=== PATIENT | male | born 1955 | race Caucasian/White ===

== ENCOUNTER 2020-05-23 08:17 | Outpatient (CLI) | payer MEDICARE, MEDICAID, SELFPAY ==
[2020-05-23 14:26] LABS: HCT 45.6 % (40.0-50.0); HGB 14.9 g/dL (13.5-17.5); MCH 29.4 pg (27.0-33.0); MCHC 32.7 % (32.0-36.0); MCV 89.9 fL (80-95); MPV 11.4 fL (8.0-11.0); Platelet Count 200 10^3/uL (130-400); RBC 5.07 10^6/uL (4.36-5.78); RDW 12.1 % (11.8-14.1); RDW-SD 40.1 fL; WBC 5.55 10^3/uL (4.4-10.8)
[2020-05-23 15:45] LABS: ALT 41 U/L (16-63); AST 27 U/L (15-37); Albumin 4.1 g/dL (3.4-5.0); Alkaline Phosphatase 81 U/L (46-116); BUN 22 mg/dL (7-18); Bilirubin, Total 0.6 mg/dL (0.2-1.0); CREATININE 0.9 mg/dL (0.70-1.30); Calcium 9.3 mg/dL (8.5-10.1); Calculated LDL 146 mg/dL (<100); Chloride 103 mmol/L (98-107); Cholesterol 228 mg/dL (<200); Glucose 101 mg/dL (74-106); HDL Cholesterol 62 mg/dL (40-60); Potassium 4.5 mmol/L (3.5-5.1); Sodium 142 mmol/L (136-145); TSH (W/Ref FT4) 2.98 uIU/mL (0.36-3.74); Total Protein 7.1 g/dL (6.4-8.2); Triglyceride 100 mg/dL (<150)
== END 2020-05-23 08:18 | disposition home or self-care (01) ==
LOC: LBO 08:18
PROVIDERS: PCP Student in an Organized Health Care Education/Training Program; Visit Provider Student in an Organized Health Care Education/Training Program
DX: R53.83 Other fatigue (principal); F32.9 Major depressive disorder, single episode, unspecified; N52.9 Male erectile dysfunction, unspecified; H81.09 Meniere's disease, unspecified ear; E86.0 Dehydration
CPT/HCPCS: 36415; 80053; 80061; 85027; 84443

== ENCOUNTER 2020-07-29 15:06 | Emergency (ER) | payer MEDICARE, MEDICAID, SELFPAY ==
[2020-07-29 15:12] VITALS: BP 121/88; PULSE 67; RESP 18; TEMP 36.6; O2SAT 97
--- NOTE | 2020-07-29 16:00 | DI.RAD_ITS ---
Exam(s) XR KNEE LT 3V AP,LAT,DONOVAN EXAM: XR KNEE LT 3V AP,LAT,DONOVAN CLINICAL HISTORY: Left knee swelling, stiffness, R/O effusion. TECHNIQUE: 2D digital imaging was performed. COMPARISON: No exams were available for comparison FINDINGS: No evidence of fracture but there does appear to be a joint effusion. There are mild degenerative ch anges in the medial compartment. On the frontal view there is abnormal density in the soft tissues o ff the medial aspect of the joint. Correlation with any clinical signs of medial collateral ligament tear recommended. IMPRESSION: As above. Orthopedic follow-up recommended. DATA REPOSITORY: RADIATION DOSE DELIVERED:
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
--- NOTE | 2020-07-29 17:52 | DI.VRAD_ITS ---
PROCEDURE INFORMATION: Exam: XR Left Knee Exam date and time: 07/29/2020 4:09 PM Age: 65 years old Clinical indication: Pain; Knee; Left TECHNIQUE: Imaging protocol: XR Left knee. Views: 3 views. COMPARISON: No relevant prior studies available. FINDINGS: Bones/joints: Normal anatomic alignment. There is no evidence of acutely displaced fractures. There is no evidence of joint dislocation. No aggressive osseous lesions. A large suprapatellar joint effusion is present. Soft tissues: There is no significant soft tissue swelling. IMPRESSION: 1. Large suprapatellar effusion. 2. Negative for acute skeletal pathology. Dictated and Authenticated by: Sumit Chang MD. Ordering:HUGH Plascencia MD
== END 2020-07-29 18:20 | disposition home or self-care (01) ==
PROVIDERS: Emergency Provider Registered Nurse Emergency; PCP Student in an Organized Health Care Education/Training Program
DX: M25.462 Effusion, left knee (principal)
CPT/HCPCS: 29105; 73562; 99283

== ENCOUNTER 2020-08-13 11:26 | Outpatient (CLI) | payer MEDICARE, MEDICAID, SELFPAY ==
--- NOTE | 2020-08-13 11:00 | DI.RAD_ITS ---
Exam(s) XR KNEE LT 4V AP,LAT,DONOVAN,PAT EXAM: XR KNEE LT 4V AP,LAT,DONOVAN,PAT CLINICAL HISTORY: pain. TECHNIQUE: 2D digital imaging was performed. COMPARISON: CR,XR XR KNEE LT 3V AP,LAT,DONOVAN from 07/29/2020 FINDINGS: Four views of the left knee reveal no evidence of fracture nor obvious joint effusion. No obvious de generative changes in the medial lateral compartments. Small spur is noted off the lateral aspect of the patella. Minimal narrowing of the retropatellar compartment mid level. No osseous lesions. Carl ne density is age-appropriate. IMPRESSION: DATA REPOSITORY: RADIATION DOSE DELIVERED:
== END 2020-08-13 11:27 | disposition home or self-care (01) ==
LOC: DIORS 11:26
PROVIDERS: PCP Student in an Organized Health Care Education/Training Program; Referring Provider Student in an Organized Health Care Education/Training Program; Visit Provider Student in an Organized Health Care Education/Training Program
DX: M22.2X2 Patellofemoral disorders, left knee (principal); M22.8X2 Other disorders of patella, left knee; M25.562 Pain in left knee
CPT/HCPCS: 99214; 73564

== ENCOUNTER 2023-11-05 03:01 | Outpatient (CLI) | payer MEDICARE, MEDICAID, SELFPAY ==
[2023-11-05 12:17] LABS: Calculated LDL 100 mg/dL (<100); Cholesterol 182 mg/dL (<200); HDL Cholesterol 63 mg/dL (40-60); Triglyceride 98 mg/dL (<150)
== END 2023-11-05 03:02 | disposition home or self-care (01) ==
LOC: LBO 03:01
PROVIDERS: PCP Student in an Organized Health Care Education/Training Program; Referring Provider Student in an Organized Health Care Education/Training Program; Visit Provider Student in an Organized Health Care Education/Training Program
DX: Z13.220 Encounter for screening for lipoid disorders (principal)
CPT/HCPCS: 36415; 80061

== ENCOUNTER 2024-08-09 13:58 | Emergency (ER) | payer MEDICARE, SELFPAY ==
[2024-08-09 14:03] VITALS: BP 129/82; PULSE 75; RESP 16; TEMP 36.6; O2SAT 98
[2024-08-09 14:07] VITALS: BP 129/82; PULSE 75; RESP 16; TEMP 36.6; O2SAT 98
--- NOTE | 2024-08-09 14:15 | DI.CT_ITS ---
Exam(s) CT ABDOMEN PELVIS W EXAM: CT ABDOMEN PELVIS W CLINICAL HISTORY: lower abdominal pain. TECHNIQUE: Imaging Protocol: Axial computed tomography images with coronal and sagittal reformatted images were created and reviewed CONTRAST MATERIAL: Intravenous: Omnipaque 350 Contrast volume:100 ml Oral: no COMPARISON: No exams were available for comparison FINDINGS: ABDOMEN and PELVIS: Lung Bases: No acute findings. Liver: Normal density. No suspicious mass. Gallbladder and biliary tract: There is a single small gallstone in the dependent portion of the gallbladder. No wall thickening or pericholecystic fluid. No biliary dilation. Pancreas: Normal density. No abnormal calcifications or inflammatory process. No evidence of mass. Spleen: Normal. Kidneys: Normal size, contour and axis. No radiodense stones. No obstructive uropathy. Simple cyst left kidney. No follow-up recommended. No suspicious masses seen. Adrenal glands: No masses seen. Vasculature: Abdominal aorta non-dilated. Soft tissues: Unremarkable. Bladder: No gross wall thickening. No calculi.No focal mass. Bowel: No obstruction. Diverticulosis, greatest of the sigmoid. Wall thickening and inflammation at the distal sigmoid colon consistent with diverticulitis. Appendix normal. Peritoneal cavity: No ascites. No focal collection. Inflammation surrounding the lower descending colon. No free air. Bones: Unremarkable for age. Reproductive organs: Unremarkable. Lymph nodes: No pathologically enlarged lymph nodes. IMPRESSION:: Diverticulitis at the lower descending colon. No perforation or abscess. Findings called to Dr. Mojica of the emergency department. RADIATION DOSE DELIVERED: 906.59mGy.cm Total DLP DATA REPOSITORY: All CT scans at this facility are submitted to the National Radiology Data Registry (NRDR) Dose Index Registry (DIR) with the [employer] (ACR). RADIATION OPTIMIZATION: All CT scans at this facility use at least one of these dose optimization techniques: automated exposure control; mA and/or kV adjustment per patient size (includes targeted exams where dose is matched to clinical indication); or iterative reconstruction.
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
[2024-08-09] MEDS: Normal Saline 1,000 ML 1000 ML IV (14:44)
[2024-08-09] MEDS: Ondansetron 4 MG/2 ML VIAL IVP (14:44)
[2024-08-09 14:49] LABS: Abs Immature Grans 0.05 10^3/uL (0.0-0.06); Basophils % 0.1 %; Eosinophils % 0.7 %; HCT 44.1 % (40.0-50.0); HGB 14.5 g/dL (13.5-17.5); Immature Grans % 0.4 %; Lymphocytes % 15.2 %; MCH 29.1 pg (27.0-33.0); MCHC 32.9 % (32.0-36.0); MCV 88 fL (80-95); MPV 11.1 fL (8.0-11.0); Monocytes % 11.8 %; Neutrophils % 71.8 %; Platelet Count 226 10^3/uL (130-400); RBC 4.99 10^6/uL (4.36-5.78); RDW 12.8 % (11.8-14.1); RDW-SD 41.4 fL; WBC 13.51 10^3/uL (4.4-10.8)
[2024-08-09 14:52] LABS: ESR 19 mm/hr (0-20)
[2024-08-09 14:59] LABS: Absolute Basophil Count 0.01 10^3/uL (0.0-0.2); Absolute Eosinophil Count 0.09 10^3/uL (0.0-0.7); Absolute Lymphocyte Count 2.05 10^3/uL (1.2-3.4); Absolute Monocyte Count 1.59 10^3/uL (0.1-0.8)
[2024-08-09 15:08] LABS: ALT 36 U/L (16-63); AST 18 U/L (15-37); Albumin 3.8 g/dL (3.4-5.0); Alkaline Phosphatase 97 U/L (46-116); Anion Gap 8.4 mmol/L (3-11); BUN 21 mg/dL (7-18); Bilirubin, Total 0.7 mg/dL (0.2-1.0); C-Reactive Protein 8.84 mg/dL (<or=0.5); CO2 28.6 mmol/L (21.0-32.0); CREATININE 0.9 mg/dL (0.70-1.30); Calcium 9.5 mg/dL (8.5-10.1); Chloride 102 mmol/L (98-107); Estimated GFR 91.88 (mL/min/1.73m2); Glucose 94 mg/dL (74-106); Lipase 42 U/L (<78); Potassium 4.3 mmol/L (3.5-5.1); Sodium 139 mmol/L (136-145); Total Protein 7.6 g/dL (6.4-8.2)
[2024-08-09 15:09] LABS: INR 1.1 (0.9-1.1); Prothrombin Time 10.8 sec (9.1-11.1)
[2024-08-09 15:13] LABS: Bilirubin Negative (Negative); Blood Negative (Negative); Clarity Clear (Clear); Glucose Negative (Negative); Ketones Negative (Negative); Leukocyte Esterase Negative (Negative); Nitrite Negative (Negative); Specific Gravity <= 1.005 (1.005-1.025); Urobilinogen 0.2 mg/dL (Up to 0.2); pH 6.5 (5-8)
[2024-08-09 15:16] LABS: Diff Comment Agrees w/ Instrument
[2024-08-09 15:17] LABS: RBC Morphology Normal
[2024-08-09] MEDS: Normal Saline - Diluent 50 ML VIAL IJ (15:19)
[2024-08-09] MEDS: Omnipaque 350 MG/ML 100 ML BTL IJ (15:20)
[2024-08-09 15:46] VITALS: BP 122/69; PULSE 67; RESP 16; O2SAT 97
[2024-08-09] MEDS: Amoxicillin 875/Clav. 125 TAB PO (16:25)
== END 2024-08-09 16:22 | disposition home or self-care (01) ==
PROVIDERS: Emergency Provider Emergency Medicine; PCP Student in an Organized Health Care Education/Training Program
DX: K57.32 Diverticulitis of large intestine without perforation or abscess without bleeding (principal); Z87.891 Personal history of nicotine dependence
CPT/HCPCS: 80053; 83690; 85652; 96374; 99285; 74177; 81003; 83735; 85025; 85610; 86140; 99284; J2405; J3490

== ENCOUNTER → 2024-09-07 13:30 | Outpatient (BNVA) | payer MEDICARE, SELFPAY | PROVIDERS: PCP Student in an Organized Health Care Education/Training Program; Referring Provider Emergency Medicine; Visit Provider Surgery | DX: K57.33 Diverticulitis of large intestine without perforation or abscess with bleeding (principal); K62.5 Hemorrhage of anus and rectum | CPT/HCPCS: 99204 ==

== ENCOUNTER 2024-10-06 11:32 | Day surgery (SDC) | payer MEDICARE, SELFPAY ==
[2024-10-06 11:51] VITALS: BP 138/93; PULSE 96; RESP 16; TEMP 35.8; O2SAT 96
[2024-10-06] MEDS: Lactated Ringers 1,000 ML 80 ML IV (11:58)
--- NOTE | 2024-10-06 12:14 | W.ANESPRE ---
General Info Date of Service Date Performed: 10/06/24 Height: 5 ft 9 in Weight: 98.4 kg Body Mass Index (BMI): 32.0 Surgical Procedure: Operation Date: 10/06/24 13:05 Proposed Procedure Side Surgeon p Colonoscopy Concetta Guy MD Meds Allergies and Home Medications Allergies Allergy/AdvReac Type Severity Reaction Status Date / Time levofloxacin (From Levaquin) AdvReac Intermediate Other (See Verified 10/06/24 11:49 Comment) Home Medication ?Medication ?Instructions ?Recorded famotidine 10 mg tablet (Acid 10 mg PO DAILY PRN 07/24/20 Manager Validation (famotidine)) acetaminophen 650 mg 650 mg PO Q12H 09/24/23 tablet,extended release (Tylenol Arthritis Pain) atorvastatin 20 mg tablet (Lipitor) 20 mg PO DAILY #90 tabs 08/26/24 escitalopram oxalate 20 mg tablet 20 mg PO DAILY #90 tabs 08/26/24 (Lexapro) bisacodyl 5 mg tablet,delayed 5 mg PO ONCE colonscopy bowel prep 09/07/24 release (Dulcolax (bisacodyl)) #4 tabs polyethylene glycol 3350 17 238 g PO ONCE colonoscopy prep 09/07/24 gram/dose oral powder #238 grams cetirizine 10 mg tablet (Zyrtec) 10 mg PO DAILY PRN 10/03/24 omeprazole 20 mg capsule,delayed 20 mg PO DAILY 10/03/24 release Current Visit Medications: Current Medications Generic Name Dose Route Start Last Admin Trade Name Freq PRN Reason Stop Dose Admin Ringer's Solution 1,000 mls @ 80 mls/hr 10/06/24 06:00 10/06/24 11:58 IV 10/06/24 23:59 80 mls/hr INFUSION BLAYNE Administration IV Miscellaneous Supplies 1 each 10/06/24 06:00 Iv Access IV 10/06/24 23:59 DIRECTED BLAYNE Sodium Biphosphate/Sodium Phosphate 133 ml 10/06/24 06:00 Na Phosphate Enema-Adult 133 Ml Btl HI 10/06/24 23:59 DIRECTED PRN Sodium Chloride 0 ml 10/06/24 06:00 Normal Saline Flush 10 Ml Syr IV 10/06/24 23:59 PRN PRN Sodium Chloride 0 ml 10/06/24 06:00 Normal Saline 10 Ml Vial IJ 10/06/24 23:59 DIRECTED PRN Sterile Water 0 ml 10/06/24 06:00 Water,Injection,Sterile 10 Ml Vial IJ 10/06/24 23:59 DIRECTED PRN PFSH Active Problems Active Problems: Problem Status Onset Code Diverticulitis large intestine w/o perforation or abscess w/bleeding Acute K57.33 Skin cancer (melanoma) Acute C43.9 Maltracking of left patella Acute M22.8X2 Patellofemoral syndrome of left knee Acute M22.2X2 Effusion of knee joint, left Acute M25.462 Stress and adjustment reaction Acute F43.29 Aging Acute Fatigue Acute R53.83 Sciatica Acute M54.30 Arthritis of right shoulder region Acute M19.011 Depression Chronic F32.9 Meniere's disease Chronic H81.09 Medical History Medical History History of IBS Hx surgery? Neoplasm of unspecified behavior of bone, soft tissue, and skin Erectile dysfunction Allergic rhinitis Tobacco Smoking/Tobacco Use Status: Former Tobacco Use Alcohol Alcohol Intake: never Substance Use Substance use: Never Substance use type: does not use Vital Signs and Lab Results Vital Signs Most Recent Vital Signs in EMR: Most Recent Vital Signs Temp Pulse Resp BP Pulse Ox 35.8 C L 96 H 16 138/93 H 96 10/06/24 11:51 10/06/24 11:51 10/06/24 11:51 10/06/24 11:51 10/06/24 11:51 Anesthesia Assessment and Plan Anesthesia History Personal History: No History of Anesthesia Complications Family History: No Family History of Anesthesia Complications Exercise Tolerance Exercise Tolerance: Metabolic Equivalents>4 Pertinent Negatives Pertinent Negatives: No Major Cardiovascular Symptoms or Complaints, No Major Pulmonary Symptoms or Complaints and No History of CVA/TIA Cardiac & Pulmonary Exam Cardiac Exam: Normal S1/S2 Heart Sounds Pulmonary Exam: Clear Bilateral Breath Sounds Implantable Cardiac Device Does patient have a Pacemaker or an ICD?: No Airway Exam Known Difficult Airway: No Mallampati Class: 2 Mouth Opening: Narrow (< 3cm) Thyromental Distance: Greater than 3 cm Neck Range of Motion: Full ROM Neck Circumference: Normal Teeth Condition: Normal Dentition Tooth Numbering:  1. Chipped tooth ASA Classification ASA Score: ASA 2 Emergency Case?: No NPO Status NPO Status: NPO Clears >2 hours, Solids >8 hours Anesthesia Plan Resuscitation Status: Full Code Anesthesia Technique: General Anesthesia Airway Planned: Natural Airway Monitors Used: Standard Monitors
[2024-10-06 12:15] VITALS: BMI 32.0
--- NOTE | 2024-10-06 12:38 | BOWEL_PTH ---
PATIENT: Zachary Eaton LOC: [facility] U#:[id number] AGE/SX: 69/M ROOM: RE10/06/[address]: Concetta Guy MD : [id number] BED: DIS: 10/06/2024 SPEC #: [id number] RECD: 10/06/24 13:10 STATUS: MYESHA REQ #: [id number] NIKO: 10/06/24 12:[address]: Concetta Guy DEPT: Surgical Specimen RECD BY: Humaira Hays ENTERED: 10/06/24 13:12 SP TYPE: Bowel OTHR DR: Rowdy Patiño MD Tissues: 1 - BIOPSY BOWEL Procedures: GROSS AND MICRO LEVEL 4 Comments: [id number]
--- NOTE | 2024-10-06 12:46 | W.PM.DSUDISC ---
Date of service: 10/06/24 Discharge Plan Disposition Patient Disposition: Home Condition: Stable Discharge Details Attending Provider: Concetta Guy Primary Care Provider: Rowdy Patiño Home Meds and New Rx's Prescriptions: Continued escitalopram oxalate [Lexapro] 20 mg tablet 20 mg PO DAILY Qty: 90 3RF Rx Instructions: Re-starting atorvastatin [Lipitor] 20 mg tablet 20 mg PO DAILY Qty: 90 3RF famotidine [Acid Vacuum Truck Driver (famotidine)] 10 mg tablet 10 mg PO DAILY PRN Rx Instructions: Usually takes a few times a week with relief. 07/24/20. EO acetaminophen [Tylenol Arthritis Pain] 650 mg tablet extended release 650 mg PO Q12H cetirizine [Zyrtec] 10 mg tablet 10 mg PO DAILY PRN Rx Instructions: Take for season omeprazole 20 mg capsule,delayed release(DR/EC) 20 mg PO DAILY Patient Comments: TAKE 1 CAPSULE BY MOUTH DAILY 0.5 TO 1 HOUR BEFORE BREAKFAST NEEDED FOR HEARTBURN Discontinued bisacodyl [Dulcolax (bisacodyl)] 5 mg tablet,delayed release (DR/EC) 5 mg PO ONCE Qty: 4 0RF Rx Instructions: take per colonoscopy instructions polyethylene glycol 3350 17 gram/dose powder 238 g PO ONCE Qty: 238 0RF Rx Instructions: take per colonoscopy instructions Discharge Instructions Stand Alone Forms: Anesthesia Discharge Inst., Colonoscopy Post Instructions, Keenan Leon (DSU) Activity:: Activity as Tolerated Diet:: As Tolerated Discharge Orders Discharge Orders: Discharge Order (Routine); Ordered 10/06/24 Ordered By: Concetta Guy DS: Diagnosis Discharge Diagnosis (1) Diverticulosis of colon: Status: Acute (2) Polyp of transverse colon: Status: Acute
--- NOTE | 2024-10-06 12:50 | W.COLOREPORT ---
Date of service: 10/06/24 Time of Service: 12:50 Colonoscopy Report Pre-op diagnosis general: history of diverticulitis Post-op diagnosis procedure note: same (1. diverticulosis of colon. 2. transverse colon polyp. ) Surgeon: Concetta Guy Anesthesia Type: General:No Airway Estimated blood loss (mL): 1 Pathology: other (1. transverse colon polyp) Complications: None Disposition: same day Prep: Miralax/Dulcolax (excellent) Procedure Description: Informed consent was obtained and the patient was taken to the procedure area. The patient was placed in left lateral decubitus position on the procedure table. Timeout was performed. Anesthesia was induced. ELEUTERIO was performed. A lubricated colonoscope was inserted through the anus and passed to the cecum. The cecum was identified by the ileocecal valve and the appendiceal orifice. The scope was then slowly withdrawn and the colonic and rectal mucosa examined.The scope was retroflexed in the anorectal junction examined. Transverse colon polyp 5mm sessile excised piecemeal with cold forceps. Removal and retrieval was complete. Sigmoid diverticulosis noted, severe. Both small and large mouthed diverticula are noted. No evidence of diverticulitis. Grade 2 internal hemorrhoids without complication. Assessment and plan: Diverticulosis as the only finding in the area he has experienced infections and pain in. No IBD, no mass lesion. Continue to manage diverticulitis expectantly when it occurs. Next colonoscopy will be due in 5 years if the transverse colon polyp is adenomaotus. 10 years if hyperplastic. High fiber diet and/or daily powdered fiber supplement recommended for diverticulosis.
[2024-10-06 12:52] VITALS: BP 84/65; PULSE 61; RESP 14; TEMP 35.7; O2SAT 93
--- NOTE | 2024-10-06 13:21 | W.ANESPOSTOP ---
Postoperative Evaluation Date, Time and Location Date Performed: 10/06/24 Time Performed: 13:22 Patient Location: Day Surgery Unit Vital Signs Most Recent Imported Vital Signs: Most Recent Vital Signs Temp Pulse Resp BP Pulse Ox 35.7 C L 61 14 84/65 L 93 10/06/24 12:52 10/06/24 12:52 10/06/24 12:52 10/06/24 12:52 10/06/24 12:52 Reassessed and last seen 96/65 Pain Score Most Recent Pain Score: Most Recent Pain Score Pain Level 0 10/06/24 12:52 Assessment Mental Status: Awake (Alert & Oriented to Patient Baseline) Airway and Respiratory Function: Patent airway with normal (patient baseline) respiratory exam Cardiovascular Function: Hemodynamically Stable Hydration Status: Adequately Hydrated Nausea & Vomiting: No Nausea or Vomiting Pain: Pt. Denies Any Pain Peripheral Nerve Block: Patient did not receive a nerve block
[2024-10-06 13:23] VITALS: BP 119/73; PULSE 54; RESP 14; TEMP 35.9; O2SAT 93
== END 2024-10-06 13:38 | disposition home or self-care (01) ==
PROVIDERS: PCP Family Medicine; Visit Provider Surgery
PROC: 0DJD8ZZ Inspection of Lower Intestinal Tract, Via Natural or Artificial Opening Endoscopic (ICD-10-PCS; CPT 45378; principal; 2024-10-06 13:00)
DX: K57.30 Diverticulosis of large intestine without perforation or abscess without bleeding (principal); D12.3 Benign neoplasm of transverse colon; K64.8 Other hemorrhoids
CPT/HCPCS: 45380; 88305; J2704